=== PATIENT | female | born 1975 | race Two or more races ===

== ENCOUNTER 2016-07-27 16:57 | Emergency (ER) | payer OTHER ==
[~2016-07-27] VITALS: Ht 157.5 cm; Wt 50.0 kg
[~2016-07-27 16:57] MED LIST: AZIT250T94 PO; FAMO-18 PO; FLUT9.9S NASAL; HYDR-3498 PO; IBUP-1542 PO; METR375C4 PO; PROM6.25 PO; PSEU30TA38 PO; [UNRECOGNIZED DRUG - REMARK]
[2016-07-27 17:24] VITALS: Ht 157.5 cm; Wt 50.0 kg
[2016-07-27] MEDS ORDERED: ACETAMINOPHEN 325 MG TAB PO ONE (19:00)
[2016-07-27] MEDS ORDERED: SOD CHLORIDE 0.9% 500 ML IV STA (19:08)
--- NOTE | 2016-07-27 19:40 | RADRPT ---
PROCEDURE: Right upper quadrant abdominal ultrasound. CLINICAL INDICATION: Abdominal pain TECHNIQUE: Chavarria scale and color doppler ultrasound images of the right upper quadrant. COMPARISON: CT abdomen pelvis 12/23/2015 FINDINGS: Pancreas: Poorly visualized due to overlying bowel gas. Liver: Morphology: The right lobe of the liver is elongated measuring up to 17.7 cm which may reflect Ssii del's lobe configuration. Echogenicity: Increased echogenicity of the liver parenchyma suggestive of hepatic steatosis. Focal lesions: None. Main portal vein: Patent with hepatopetal flow. Biliary System: Normal appearing gallbladder wall. No gallstones seen. No intrahepatic biliary dilatation. Common bile duct measures 2.7 mm in maximal dimension. Kidneys: Right 10.3 cm in length. Right renal cortical thickness is preserved. Normal echogenicity. No hydronephrosis. No renal calculi. No focal lesions. No free fluid identified. IMPRESSION: Normal gallbladder without gallstones. Increased echogenicity of the liver parenchyma suggestive of hepatic steatosis. RPTAT: AADD .Jose G Wiggins MD, MD Date Time Electronically viewed and signed by .Jose G Wiggins MD, on 07/27/2016 19:39 .B/
[2016-07-27 19:41] LABS: ADD UMIC NO; URINE BILIRUBIN (Dip) NEGATIVE (NEGATIVE); URINE BLOOD (Dip) NEGATIVE (NEGATIVE); URINE COLOR LT. YELLOW (YELLOW); URINE GLUCOSE (Dip) NEGATIVE (NEGATIVE); URINE KETONES (Dip) NEGATIVE (NEGATIVE); URINE LEUKOCYTE ESTERASE (Dip) NEGATIVE (NEGATIVE); URINE NITRITE (Dip) NEGATIVE (NEGATIVE); URINE TOTAL PROTEIN (Dip) NEGATIVE (NEGATIVE); URINE UROBILINOGEN (Dip) 0.2 E.U./dL (0.1-1.0)
--- NOTE | 2016-07-27 20:05 | RADRPT ---
PROCEDURE: CT Brain without contrast. CLINICAL INDICATION: Dizziness and headache TECHNIQUE: A CT of the brain was performed on a [employer] 64-slice CT scanner utilizing axial imaging from the skull base through the vertex without IV contrast. Multiplanar reformatted images were made. Images were reviewed on a PACS workstation. The CTDIvol is 39.59 mGy and the DLP is 634 .23 mGycm. One of the following 3 dose reduction techniques were used: Automated exposure control; adjustment of the mA and/or kV according to patient size; or use of iterative reconstruction technique. COMPARISON: 05/10/2013 CT brain FINDINGS: There is no intracranial hemorrhage, mass effect, or midline shift. No extra-axial fluid collection is seen. The ventricles and sulci are normal in size and configuration. The density of the brain is normal, and the gonzalez white matter differentiation appears well-preserved. The visualized scalp and calvarium are normal. The bilateral orbits are normal. The bilateral para nasal sinuses, mastoid air cells, and middle ear cavities are clear. IMPRESSION: 1. No evidence of acute intracranial hemorrhage, infarcts, or acute intracranial pathology. 2. Normal noncontrast head CT. RPTAT: HD .Ruthie Sanches MD, Date Time Electronically viewed and signed by .Ruthie Sanches MD, on 07/27/2016 20:05 .C/
[2016-07-27 20:28] LABS: ADD SCAN DIFF NO
[2016-07-27 20:36] LABS: BASOPHILS % 0.4 % (0.0-2.0); EOSINOPHILS # 0.2 10^3/ul (0.0-0.5); EOSINOPHILS % 2.9 % (0.0-7.0); HEMATOCRIT 37.5 % (37.0-47.0); HEMOGLOBIN 11.8 g/dl (12.0-16.0); LYMPHOCYTES # 3.3 10^3/ul (0.8-2.9); LYMPHOCYTES % 48.1 % (15.0-51.0); MEAN CORPUSCULAR HEMOGLOBIN 22.5 pg (29.0-33.0); MEAN CORPUSCULAR HGB CONC 31.5 g/dl (32.0-37.0); MEAN CORPUSCULAR VOLUME 71.6 fl (82.0-101.0); MEAN PLATELET VOLUME 10.9 fl (7.4-10.4); MONOCYTE # 0.4 10^3/ul (0.3-0.9); MONOCYTES % 5.7 % (0.0-11.0); NEUTROPHIL # 2.9 10^3/ul (1.6-7.5); NEUTROPHILS % 42.5 % (39.0-77.0); PLATELET COUNT 250 10^3/UL (140-415); RED BLOOD COUNT 5.24 10^6/ul (4.20-5.40); RED CELL DISTRIBUTION WIDTH 13.2 % (11.5-14.5); WHITE BLOOD COUNT 6.9 10^3/ul (4.8-10.8)
[2016-07-27 20:39] LABS: ALBUMIN 4.4 g/dl (3.3-4.9)
[2016-07-27 20:40] LABS: POTASSIUM 3.9 mmol/L (3.5-5.1)
[2016-07-27 20:42] LABS: ALBUMIN/GLOBULIN RATIO 1.29; CREATININE 0.59 mg/dl (0.44-1.00); TOTAL PROTEIN 7.8 g/dl (6.1-8.1)
[2016-07-27 20:43] LABS: CALCIUM 9.6 mg/dl (8.4-10.2)
[2016-07-27] MEDS ORDERED: FAMO20TA18 PO (21:30)
[2016-07-27] MEDS ORDERED: HYDR-906 PO (21:30)
[2016-07-27] MEDS ORDERED: ONDA4TAB8 PO (21:30)
[2016-07-27] MEDS ORDERED: IBUP-1542 PO (21:30)
[2016-07-27 22:10] VITALS: BP 139/79; PULSE 87; RESP 18; TEMP 97.9
--- NOTE | 2016-07-28 03:45 | ERD ---
ER Documentation Chief Complaint Date/Time DATE: 07/28/16 TIME: 03:32 Chief Complaint CAME TO ED C/O ELEVATED BLOOD GLUCOSE AND INSOMNIA HPI Patient is a 41-year-old female complaining of generalized weakness and intermittent frontal headache for 2 weeks. Patient also complained of chronic right upper quadrant pain for several months and urinary frequency. Patient has a medical history of diabetes and GERD. Patient denies any recent history of fever, nausea, vomiting, dysuria, cough, dysphagia, paresthesia, paresis, diarrhea or constipation. Denies any history of surgery. ROS All systems reviewed and are negative except as per history of present illness. Medications Home Meds Active Scripts Ibuprofen* (Motrin*) 600 Mg Tab, 600 MG PO Q6H Y for PAIN AND OR ELEVATED TEMP, #30 TAB Prov:FAISAL SCHREIBER 07/27/16 Hydrocodone/Acetaminophen ([place] 5-325 Tablet) 1 Each Tablet, 1 EACH PO Q4 for PAIN, #10 TAB Prov:FAIASL SCHREIBER 07/27/16 Famotidine* (Famotidine*) 20 Mg Tablet, 20 MG PO DAILY, #30 TAB Prov:FAISAL SCHREIBER 07/27/16 Ondansetron Hcl* (Zofran*) 4 Mg Tablet, 4 MG PO Q6H for NAUSEA AND/OR VOMITING, #30 TAB Prov:FAISAL SCHREIBER 07/27/16 Ibuprofen* (Motrin*) 600 Mg Tab, 600 MG PO Q6, #30 TAB Prov:ROLANDO PHELAN PA-C 05/23/16 Pseudoephedrine Hcl* (Pseudoephedrine Hcl*) 30 Mg Tablet, 30 MG PO Q6 Y for CONGESTION, #30 TAB Prov:AFSHIN ARREAGA PA-C 12/23/15 Fluticasone Propionate (Flonase Allergy Relief) 9.9 Ml [place].susp, 1 SPRAY NASAL DAILY, #1 BOTTLE TO EACH NOSTRIL Prov:AFSHIN ARREAGA PA-C 12/23/15 Hydrocodone Bit-Acetaminophen* ([place]*) 5-325 Mg Tab, 1 TAB PO Q4H Y for PAIN for 5 Days, TAB Prov:ADDY RODRIGUEZ 08/16/15 Famotidine* (Pepcid*) 20 Mg Tablet, 20 MG PO BID for 15 Days, TAB Prov:ADDY RODRIGUEZ 08/16/15 Promethazine w/Codeine* (Phenergan w/Codeine* Syrup) 5 Ml Syrup, 5 ML PO Q4H Y for COUGH, #4 OZ Prov:ROLANDO PHELAN PA-C 06/27/15 Azithromycin* (Zithromax*) 250 Mg Tablet, 250 MG PO .ZPACK DIRECTED, #6 TAB TAKE 500 MG (2 TABS) THE FIRST DAY THEN 250 MG (1 TAB) DAYS 2-5 Prov:ROLANDO PHELAN PA-C 06/27/15 Reported Medications [stomach medications] No Conflict Check 01/11/15 Metronidazole* (Metronidazole*) 375 Mg Capsule, 375 MG PO BID, CAP 01/11/15 Allergies Allergies: Coded Allergies: No Known Allergy (Unverified , 01/31/14) PMhx/Soc History of Surgery: No Anesthesia Reaction: No Hx Neurological Disorder: No Hx Respiratory Disorders: No Hx Cardiac Disorders: No Hx Psychiatric Problems: No Hx Miscellaneous Medical Probl: Yes (GERD; dm) Hx Alcohol Use: No Hx Substance Use: No Hx Tobacco Use: No Smoking Status: Never smoker Physical Exam Vitals Vital Signs Date Time Temp Pulse Resp B/P Pulse Ox O2 Delivery O2 Flow Rate FiO2 07/27/16 22:10 97.9 87 18 139/79 100 Room Air 07/27/16 17:24 98.7 102 16 126/79 99 Physical Exam Physical Exam CONST: Well-developed, well-nourished, in no acute distress. Nontoxic in appearance. HEENT: Atraumatic. Normal Conjunctiva. EOM intact. TM intact. External ear is normal. Clear oropharnyx without erythema. No Uvular deviation. Moist mucous membranes. Supple neck. No meningismus. No submandibular induration. RESP: Clear to auscultation bilaterally. No wheezing. CARDIO: Regular rate and rhythm, no murmurs. ABD: Soft, non distended. Normal bowel sounds. positive for McBurney's point and epigastric tenderness. No guarding or rigidity. No peritoneal signs. SKIN: No petechiae or rashes. BACK: No midline or flank tenderness. EXT: No cyanosis or edema. Distal pulses equal and bilateral. NEURO: Awake and alert, appropriate for age Result Diagram: 07/27/16193907/27/161939 Results 24 hrs Laboratory Tests Test 07/27/16 17:33 07/27/16 19:25 07/27/16 19:40 07/27/16 19:52 Bedside Glucose 202mg/dL 198mg/dL Urine Bilirubin NEGATIVE Urine Clarity CLEAR Urine Color LT. YELLOW Urine Glucose NEGATIVE% Urine Hemoglobin NEGATIVE Urine Ketones NEGATIVE Urine Leukocyte Esterase NEGATIVE Urine Nitrite NEGATIVE Urine Test NEGATIVE Urine Specific [place] >=1.030 Urine Total Protein NEGATIVE Urine Urobilinogen 0.2 E.U./dL Urine pH 5.5 Alanine Aminotransferase (ALT/SGPT) 47IU/L Albumin 4.4g/dl Albumin/Globulin Ratio 1.29 Alkaline Phosphatase 117IU/L Anion Gap 18 Aspartate Amino Transf (AST/SGOT) 44IU/L Basophils # 0.010^3/ul Basophils % 0.4% Blood Urea Nitrogen 13mg/dl Calcium Level 9.6mg/dl Carbon Dioxide Level 26mmol/L Chloride Level 100mmol/L Creatinine 0.59mg/dl Direct Bilirubin 0.00mg/dl Eosinophils # 0.210^3/ul Eosinophils % 2.9% Globulin 3.40g/dl Glucose Level 211mg/dl Hematocrit 37.5% Hemoglobin 11.8g/dl Indirect Bilirubin 0.0mg/dl Lipase 169U/L Lymphocytes # 3.310^3/ul Lymphocytes % 48.1% Mean Corpuscular Hemoglobin 22.5pg Mean Corpuscular Hemoglobin Concent 31.5g/dl Mean Corpuscular Volume 71.6fl Mean Platelet Volume 10.9fl Monocytes # 0.410^3/ul Monocytes % 5.7% Neutrophils # 2.910^3/ul Neutrophils % 42.5% Nucleated Red Blood Cells # 0.010^3/ul Nucleated Red Blood Cells % 0.0/100WBC Platelet Count 21819^3/UL Potassium Level 3.9mmol/L Red Blood Count 5.2410^6/ul Red Cell Distribution Width 13.2% Sodium Level 140mmol/L Total Bilirubin 0.0mg/dl Total Protein 7.8g/dl White Blood Count 6.910^3/ul Current Medications Medications (Trade) Dose Ordered Sig/Konstantin Route PRN Reason Start Time Stop Time Status Last Admin Dose Admin Acetaminophen 650 mg 650 mg ONCE ONCE PO 07/27/16 19:00 07/27/16 19:03 DC 07/27/16 20:17 Sodium Chloride (NS) 500 ml @ 500 mls/hr Q1H STAT IV 07/27/16 19:08 07/27/16 20:07 DC 07/27/16 20:17 PROCEDURE: Right upper quadrant abdominal ultrasound. CLINICAL INDICATION: Abdominal pain TECHNIQUE: Chavarria scale and color doppler ultrasound images of the right upper quadrant. COMPARISON: CT abdomen pelvis 12/23/2015 FINDINGS: Pancreas: Poorly visualized due to overlying bowel gas. Liver: Morphology: The right lobe of the liver is elongated measuring up to 17.7 cm which may reflect Cristofer's lobe configuration. Echogenicity: Increased echogenicity of the liver parenchyma suggestive of hepatic steatosis. Focal lesions: None. Main portal vein: Patent with hepatopetal flow. Biliary System: Normal appearing gallbladder wall. No gallstones seen. No intrahepatic biliary dilatation. Common bile duct measures 2.7 mm in maximal dimension. Kidneys: Right 10.3 cm in length. Right renal cortical thickness is preserved. Normal echogenicity. No hydronephrosis. No renal calculi. No focal lesions. No free fluid identified. IMPRESSION: Normal gallbladder without gallstones. Increased echogenicity of the liver parenchyma suggestive of hepatic steatosis. PROCEDURE: CT Brain without contrast. CLINICAL INDICATION: Dizziness and headache TECHNIQUE: A CT of the brain was performed on a [employer] 64-slice CT scanner utilizing axial imaging from the skull base through the vertex without IV contrast. Multiplanar reformatted images were made. Images were reviewed on a PACS workstation. The CTDIvol is 39.59 mGy and the DLP is 634.23 mGycm. One of the following 3 dose reduction techniques were used: Automated exposure control; adjustment of the mA and/or kV according to patient size; or use of iterative reconstruction technique. COMPARISON: 05/10/2013 CT brain FINDINGS: There is no intracranial hemorrhage, mass effect, or midline shift. No extra- axial fluid collection is seen. The ventricles and sulci are normal in size and configuration. The density of the brain is normal, and the chavarria white matter differentiation appears well-preserved. The visualized scalp and calvarium are normal. The bilateral orbits are normal. The bilateral paranasal sinuses, mastoid air cells, and middle ear cavities are clear. IMPRESSION: 1. No evidence of acute intracranial hemorrhage, infarcts, or acute intracranial pathology. 2. Normal noncontrast head CT. Procedures/MDM EMERGENCY DEPARTMENT COURSE/MEDICAL DECISION MAKING This is a 41-year-old female who comes to the emergency room secondary to complaints of intermittent headache and generalized weakness for 2 weeks, urinary frequency and chronic abdominal pain. The patient was given NS bolus for tachycardia and Tylenol for pain. On re- evaluation, the patient's symptoms improved. Lab results reviewed and showed no significant acute abnormalities. Patient is negative for leukocytosis or neutrophilia. POC blood sugar is 202. CT of the head and ultrasound of the abdomen were done and interpreted by a radiologist. CT of the head is negative for any intracranial hemorrhage or infarcts. Ultrasound of the abdomen shows normal gallbladder without stones and increased echogenicity of liver parenchyma suggestive of hepatic steatosis. My primary diagnosis is abdominal pain. Secondary diagnosis are headache and hyperglycemia Differential diagnoses considered, included but not limited to acute appendicitis, diverticulitis, pancreatitis, cholecystitis, gastritis, pyelonephritis, UTI, constipation, inflammatory bowel disease, ectopic , ovarian torsion.. Pt is hemodynamically stable upon reassessment. The patient was discharged for outpatient management with a prescription for Pepcid, [place], ibuprofen and Zofran. The patient was advised to followup with their PMD in 1-2 days and to return to the Emergency Department if there are any new or worsening symptoms. The patient understood and agreed with the diagnosis, treatment and plan. Patient is stable for discharge at this time. Departure Diagnosis: Primary Impression: Abdominal pain Abdominal location: right upper quadrant Qualified Code: R10.11 - Right upper quadrant abdominal pain Additional Impressions: Headache Headache type: unspecified Headache chronicity pattern: episodic headache Intractability: intractable Qualified Code: R51 - Intractable episodic headache, unspecified headache type Hyperglycemia Condition: Stable Patient Instructions: Abdominal Pain, Headache, Unspecified Referrals: CINDA MENESES (PCP) Additional Instructions: Follow-up with your primary care physician in 1-2 days. Return to the emergency department immediately should you have any new or worsening symptoms, uncontrolled fevers, or other unexplained symptoms. Take all medications as directed. FAISAL SCHREIBER Jul 28, 2016 03:44
== END 2016-07-27 23:10 | disposition home or self-care (01) ==
LOC: FTE 16:57
DX: R10.11 Right upper quadrant pain (principal); R51 Headache; E11.65 Type 2 diabetes mellitus with hyperglycemia
CPT/HCPCS: 36415; 70450; 76705; 80053; 81003; 82962; 83690; 84703; 85025; J7040; Z7502; Z7610

== ENCOUNTER 2016-11-18 12:03 | Emergency (ER) | payer OTHER ==
[~2016-11-18] VITALS: Ht 152.4 cm; Wt 56.0 kg
[~2016-11-18 12:03] MED LIST changes: +FAMO20TA18 PO; +HYDR-906 PO; +ONDA4TAB8 PO
[2016-11-18 12:07] VITALS: Ht 152.4 cm; Wt 56.0 kg
[2016-11-18] MEDS ORDERED: ACETAMINOPHEN 500 MG TAB PO STA (13:07)
[2016-11-18] MEDS ORDERED: HYDR-906 PO (13:23)
[2016-11-18] MEDS ORDERED: IBUP-1542 PO (13:23)
[2016-11-18] MEDS ORDERED: AMOX1TAB10 PO (13:24)
--- NOTE | 2016-11-18 13:34 | ERD ---
ER Documentation Chief Complaint Date/Time DATE: 11/18/16 TIME: 13:31 Chief Complaint TOOTH ACHE HPI This 41-year-old female who presents the emergency department today complaining of dental pain for the past month. I spoke to the son on the phone as she walked here by herself and does not speak much Vincentian. Denies any fevers or chills ROS All systems reviewed and are negative except as per history of present illness. Medications Home Meds Active Scripts Amoxicillin/Potassium Clav (Amox-Clav 875-125 mg Tablet) 875-125 mg Tab, 1 TAB PO BID for 7 Days, #14 TAB Prov:ALVARO STERLING PA-C 11/18/16 Ibuprofen* (Motrin*) 600 Mg Tab, 600 MG PO Q6, #30 TAB Prov:ALVARO STERLING PA-C 11/18/16 Hydrocodone/Acetaminophen ([place] 5-325 Tablet) 1 Each Tablet, 1 TAB PO Q6H Y for PAIN, #10 TAB Prov:ALVARO STERLING PA-C 11/18/16 Ibuprofen* (Motrin*) 600 Mg Tab, 600 MG PO Q6H Y for PAIN AND OR ELEVATED TEMP, #30 TAB Prov:FAISAL SCHREIBER 07/27/16 Hydrocodone/Acetaminophen ([place] 5-325 Tablet) 1 Each Tablet, 1 EACH PO Q4 for PAIN, #10 TAB Prov:FAISAL SCHREIBER 07/27/16 Famotidine* (Famotidine*) 20 Mg Tablet, 20 MG PO DAILY, #30 TAB Prov:FAISAL SCHREIBER 07/27/16 Ondansetron Hcl* (Zofran*) 4 Mg Tablet, 4 MG PO Q6H for NAUSEA AND/OR VOMITING, #30 TAB Prov:FAISAL SCHREIBER 07/27/16 Ibuprofen* (Motrin*) 600 Mg Tab, 600 MG PO Q6, #30 TAB Prov:ROLANDO PHELAN PA-C 05/23/16 Pseudoephedrine Hcl* (Pseudoephedrine Hcl*) 30 Mg Tablet, 30 MG PO Q6 Y for CONGESTION, #30 TAB Prov:AFSHIN ARREAGA PA-C 12/23/15 Fluticasone Propionate (Flonase Allergy Relief) 9.9 Ml [place].susp, 1 SPRAY NASAL DAILY, #1 BOTTLE TO EACH NOSTRIL Prov:AFSHIN ARREAGA PA-C 12/23/15 Hydrocodone Bit-Acetaminophen* ([place]*) 5-325 Mg Tab, 1 TAB PO Q4H Y for PAIN for 5 Days, TAB Prov:ADDY RODRIGUEZ 08/16/15 Famotidine* (Pepcid*) 20 Mg Tablet, 20 MG PO BID for 15 Days, TAB Prov:ADDY RORDIGUEZ 08/16/15 Promethazine w/Codeine* (Phenergan w/Codeine* Syrup) 5 Ml Syrup, 5 ML PO Q4H Y for COUGH, #4 OZ Prov:ROLANDO PHELAN PA-C 06/27/15 Azithromycin* (Zithromax*) 250 Mg Tablet, 250 MG PO .ZPACK DIRECTED, #6 TAB TAKE 500 MG (2 TABS) THE FIRST DAY THEN 250 MG (1 TAB) DAYS 2-5 Prov:ROLANDO PHELAN PA-C 06/27/15 Reported Medications [stomach medications] No Conflict Check 01/11/15 Metronidazole* (Metronidazole*) 375 Mg Capsule, 375 MG PO BID, CAP 01/11/15 Allergies Allergies: Coded Allergies: No Known Allergy (Unverified , 11/18/16) PMhx/Soc Medical and Surgical Hx: pt denies Surgical Hx History of Surgery: No Anesthesia Reaction: No Hx Neurological Disorder: No Hx Respiratory Disorders: No Hx Cardiac Disorders: No Hx Psychiatric Problems: No Hx Miscellaneous Medical Probl: Yes (GERD; dm) Hx Alcohol Use: No Hx Substance Use: No Hx Tobacco Use: No Smoking Status: Never smoker Physical Exam Vitals Vital Signs Date Time Temp Pulse Resp B/P Pulse Ox O2 Delivery O2 Flow Rate FiO2 11/18/16 12:07 97.8 83 20 142/77 99 Physical Exam Const: No acute distress Head: Atraumatic Eyes: Normal Conjunctiva ENT: Ears TMs normal. Nose no drainage. Throat erythema no exudate no vesicles. Evidence of tooth fracture lower left molar. Neck: Full range of motion..~ No meningismus. Resp: Clear to auscultation bilaterally Skin: No petechiae or rashes Neur: Awake and alert Psych: Normal Mood and Affect Results 24 hrs Current Medications Medications (Trade) Dose Ordered Sig/Konstantin Route PRN Reason Start Time Stop Time Status Last Admin Dose Admin Acetaminophen (Tylenol Tab) 500 mg ONCE STAT PO 11/18/16 13:07 11/18/16 13:09 DC 11/18/16 13:23 Procedures/MDM This 41-year-old female presents the emergency department today complaining of dental pain for the past month. I did speak to the son on the phone as the patient does not speak much Vincentian she was here by herself. According to the son she has had this dental pain for the past month. She does not currently have a dentist. He did indicate that she walked here from home. Patient symptoms at this time is consistent with dental fracture. I do have low suspicion for dental abscess however given that patient does not currently have a dentist and has had this pain for a month I will give the patient a prescription for Augmentin that would cover her for any dental abscess although I do have low suspicion for that. She is afebrile and otherwise well-appearing. Patient was given Tylenol here in the emergency department as she is walking by herself and I did not want to give her a narcotic. She was given a short course of [place] for home as well as the Augmentin. At this time the patient is stable for discharge and outpatient management. Patient should follow up with their PCP in the next 1-2 days. They may return to the emergency department sooner for any persistent or worsening of symptoms. Patient understood and agreed with the plan. Departure Diagnosis: Primary Impression: Pain, dental Condition: Fair Patient Instructions: Dental Pain Referrals: [facility] ([facility] walk in clinic) Additional Instructions: Call your primary care doctor TOMORROW for an appointment during the next 1-2 days.See the doctor sooner or return here if your condition worsens before your appointment time. Make an appointment at the dentist Take [place] for severe pain otherwise take Naprosyn or Tylenol or Motrin Take antibiotics as prescribed ALVARO STERLING PA-C Nov 18, 2016 13:33
== END 2016-11-18 14:05 | disposition home or self-care (01) ==
LOC: FTE 12:03
DX: K08.89 Other specified disorders of teeth and supporting structures (principal); E11.9 Type 2 diabetes mellitus without complications
CPT/HCPCS: Z7502; Z7610; 99284

== ENCOUNTER 2016-12-10 16:10 | Emergency (ER) | payer OTHER ==
[~2016-12-10] VITALS: Wt 60.0 kg
[~2016-12-10 16:10] MED LIST changes: +AMOX1TAB10 PO; -FAMO-18 PO; +FAMO-96 PO
[2016-12-10] MEDS ORDERED: BENZ11.92 MM (16:38)
[2016-12-10] MEDS ORDERED: [UNRECOGNIZED DRUG - CODE] PO (16:40)
[2016-12-10] MEDS ORDERED: ASCO500C7 PO (16:40)
[2016-12-10] MEDS ORDERED: CYAN100T PO (16:40)
--- NOTE | 2016-12-10 16:45 | ERD ---
ER Documentation Chief Complaint Date/Time DATE: 12/10/16 TIME: 16:43 Chief Complaint MOUTH SORE FO THE PAST 7 DAYS. NO FEVERS. NO SORE THROAT HPI 41-year-old female presents with mouth sores on her inner lower lip for the past week. She describes as localized pain. She has not had any fevers or chills, rhinorrhea cough. Denies rashes or neck stiffness. Patient is asking for prescription for vitamins. ROS All systems reviewed and are negative except as per history of present illness. Medications Home Meds Active Scripts Cyanocobalamin* (Vitamin B-12*) 100 Mcg Tablet, 100 MCG PO DAILY, #30 TAB Prov:ROLANDO PHELAN PA-C 12/10/16 Lysine (Lysine) 500 Mg Tablet, 500 MG PO DAILY, #30 TAB Prov:ROLANDO PHELAN PA-C 12/10/16 Ascorbic Acid* (Vitamin C*) 500 Mg Capsule.sa, 500 MG PO DAILY, #30 CAP Prov:ROLANDO PHELAN PA-C 12/10/16 Benzocaine ([place]) 11.9 Gm Paste..g., 1 APPLIC MM BID, #1 EA Prov:ROLANDO PHELAN PA-C 12/10/16 Amoxicillin/Potassium Clav (Amox-Clav 875-125 mg Tablet) 875-125 mg Tab, 1 TAB PO BID for 7 Days, #14 TAB Prov:ALVARO STERLING PA-C 11/18/16 Ibuprofen* (Motrin*) 600 Mg Tab, 600 MG PO Q6, #30 TAB Prov:ALVARO STERLING PA-C 11/18/16 Hydrocodone/Acetaminophen ([place] 5-325 Tablet) 1 Each Tablet, 1 TAB PO Q6H Y for PAIN, #10 TAB Prov:ALVARO STERLING PA-C 11/18/16 Ibuprofen* (Motrin*) 600 Mg Tab, 600 MG PO Q6H Y for PAIN AND OR ELEVATED TEMP, #30 TAB Prov:FAISAL SCHREIBER 07/27/16 Hydrocodone/Acetaminophen ([place] 5-325 Tablet) 1 Each Tablet, 1 EACH PO Q4 for PAIN, #10 TAB Prov:FAISAL SCHREIBER 07/27/16 Famotidine* (Famotidine*) 20 Mg Tablet, 20 MG PO DAILY, #30 TAB Prov:FAISAL SCHREIBER 07/27/16 Ondansetron Hcl* (Zofran*) 4 Mg Tablet, 4 MG PO Q6H for NAUSEA AND/OR VOMITING, #30 TAB Prov:FAISAL SCHREIBER 07/27/16 Ibuprofen* (Motrin*) 600 Mg Tab, 600 MG PO Q6, #30 TAB Prov:ROLANDO PHELAN PA-C 05/23/16 Pseudoephedrine Hcl* (Pseudoephedrine Hcl*) 30 Mg Tablet, 30 MG PO Q6 Y for CONGESTION, #30 TAB Prov:AFSHIN ARREAGA PA-C 12/23/15 Fluticasone Propionate (Flonase Allergy Relief) 9.9 Ml [place].susp, 1 SPRAY NASAL DAILY, #1 BOTTLE TO EACH NOSTRIL Prov:AFSHIN ARREAGA PA-C 12/23/15 Hydrocodone Bit-Acetaminophen* ([place]*) 5-325 Mg Tab, 1 TAB PO Q4H Y for PAIN for 5 Days, TAB Prov:ADDY RODRIGUEZ 08/16/15 Famotidine* (Pepcid*) 20 Mg Tablet, 20 MG PO BID for 15 Days, TAB Prov:ADDY RODRIGUEZ 08/16/15 Promethazine w/Codeine* (Phenergan w/Codeine* Syrup) 5 Ml Syrup, 5 ML PO Q4H Y for COUGH, #4 OZ Prov:ROLANDO PHELAN PA-C 06/27/15 Azithromycin* (Zithromax*) 250 Mg Tablet, 250 MG PO .ZPACK DIRECTED, #6 TAB TAKE 500 MG (2 TABS) THE FIRST DAY THEN 250 MG (1 TAB) DAYS 2-5 Prov:ROLANDO PHELAN PA-C 06/27/15 Reported Medications [stomach medications] No Conflict Check 01/11/15 Metronidazole* (Metronidazole*) 375 Mg Capsule, 375 MG PO BID, CAP 01/11/15 Allergies Allergies: Coded Allergies: No Known Allergy (Unverified , 12/10/16) PMhx/Soc History of Surgery: No Anesthesia Reaction: No Hx Neurological Disorder: No Hx Respiratory Disorders: No Hx Cardiac Disorders: No Hx Psychiatric Problems: No Hx Miscellaneous Medical Probl: No Hx Alcohol Use: No Hx Substance Use: No Hx Tobacco Use: No Smoking Status: Never smoker Physical Exam Vitals Vital Signs Date Time Temp Pulse Resp B/P Pulse Ox O2 Delivery O2 Flow Rate FiO2 12/10/16 16:14 98.8 89 20 150/87 100 Physical Exam General: Well-developed, well-nourished. The patient appears in no acute distress. HEENT: Head is normocephalic, atraumatic. No scleral icterus. Patient has 2 ulcers with an erythematous base, 1 approximately 0.5 cm, one naproxen 0.25 cm in inner lower lip. Throat is clear, oropharynx is clear. Neck: Supple. Nontender. Lungs: Clear to auscultation. Normal air movement. Heart: Regular rate and rhythm. S1 and S2 are normal. No murmurs, gallops, or rubs. Abdomen: Nondistended. Extremities: No clubbing or cyanosis. Moving extremities x 4. No weakness. Neurologic: Alert and oriented 3. No focal deficits. Normal speech and gait. Skin: Normal turgor. No rash or lesions. Procedures/MDM 41-year-old female presents with a mouth ulcer, likely from a viral syndrome, versus stress or fatigue. There are no signs of stomatitis, lichen planus, fungal infection, cellulitis, strep pharyngitis. Departure Diagnosis: Primary Impression: Mouth sore Condition: Good Patient Instructions: Aphthous Ulcer Additional Instructions: Call your primary care doctor TOMORROW for an appointment during the next 1-2 days.See the doctor sooner or return here if your condition worsens before your appointment time. ROLANDO PHELAN PA-C Dec 10, 2016 16:44
== END 2016-12-10 16:58 | disposition home or self-care (01) ==
LOC: FTE 16:10
DX: K13.79 Other lesions of oral mucosa (principal)
CPT/HCPCS: 99283

== ENCOUNTER 2017-01-25 11:38 | Emergency (ER) | payer OTHER ==
[~2017-01-25] VITALS: Ht 157.5 cm; Wt 97.5 kg
[~2017-01-25 11:38] MED LIST changes: +ASCO500C7 PO; +BENZ11.92 MM; +CYAN100T PO; +[UNRECOGNIZED DRUG - CODE] PO
[2017-01-25 11:46] VITALS: Ht 157.5 cm; Wt 97.5 kg
--- NOTE | 2017-01-25 13:26 | RADRPT ---
PROCEDURE: XR Chest 1 View. CLINICAL INDICATION: Chest pain TECHNIQUE: PA view of the chest was obtained. COMPARISON: June 27, 2015 FINDINGS: The cardiomediastinal silhouette is within normal limits. Chronically elevated right hemidiaphragm i s observed. No consolidations are identified. No pneumothorax is seen. Subsegmental atelectasis is identified at the right lung base. Calcified granuloma is seen in the right lower lobe. Osseous str uctures are intact. IMPRESSION: Elevated right hemidiaphragm with associated basilar atelectasis. Calcified granuloma in the right lower lobe. RPTAT: AA .Abdiel Siddiqui MD, Date Time Electronically viewed and signed by .Abdiel Siddiqui MD, on 01/25/2017 13:26 .P/
[2017-01-25 13:33] LABS: BASOPHILS % 0.3 % (0.0-2.0); EOSINOPHILS # 0.1 10^3/ul (0.0-0.5); EOSINOPHILS % 1.8 % (0.0-7.0); HEMATOCRIT 34.7 % (37.0-47.0); HEMOGLOBIN 10.8 g/dl (12.0-16.0); LYMPHOCYTES # 3.3 10^3/ul (0.8-2.9); LYMPHOCYTES % 44.5 % (15.0-51.0); MEAN CORPUSCULAR HEMOGLOBIN 22.1 pg (29.0-33.0); MEAN CORPUSCULAR HGB CONC 31.1 g/dl (32.0-37.0); MEAN CORPUSCULAR VOLUME 71.1 fl (82.0-101.0); MEAN PLATELET VOLUME 10.8 fl (7.4-10.4); MONOCYTE # 0.3 10^3/ul (0.3-0.9); MONOCYTES % 4.5 % (0.0-11.0); NEUTROPHILS % 48.5 % (39.0-77.0); PLATELET COUNT 226 10^3/UL (140-415); RED BLOOD COUNT 4.88 10^6/ul (4.20-5.40); RED CELL DISTRIBUTION WIDTH 14.4 % (11.5-14.5); WHITE BLOOD COUNT 7.3 10^3/ul (4.8-10.8)
[2017-01-25 13:54] LABS: ALANINE AMINOTRANSFERASE 48 IU/L (13-69); ALBUMIN 4.5 g/dl (3.3-4.9); ALBUMIN/GLOBULIN RATIO 1.21; ALKALINE PHOSPHATASE 98 IU/L (42-121); ANION GAP 15 (8-16); ASPARTATE AMINO TRANSFERASE 38 IU/L (15-46); BILIRUBIN,INDIRECT 0.3 mg/dl (0-1.1); BILIRUBIN,TOTAL 0.3 mg/dl (0.2-1.3); BLOOD UREA NITROGEN 15 mg/dl (7-20); CALCIUM 9.5 mg/dl (8.4-10.2); CARBON DIOXIDE 24 mmol/L (21-31); CHLORIDE 105 mmol/L (97-110); CREATININE 0.65 mg/dl (0.44-1.00); GLUCOSE 136 mg/dl (70-220); POTASSIUM 3.4 mmol/L (3.5-5.1); SODIUM 141 mmol/L (135-144); TOTAL PROTEIN 8.2 g/dl (6.1-8.1)
[2017-01-25 14:10] LABS: ADD UMIC NO; UR ASCORBIC ACID 20 mg/dL (NEGATIVE); UR BILIRUBIN (Dip) NEGATIVE (NEGATIVE); UR BLOOD (Dip) NEGATIVE (NEGATIVE); UR CLARITY SLIGHTLY CLOUDY (CLEAR); UR COLOR YELLOW (YELLOW); UR GLUCOSE (Dip) 3+ mg/dL (NEGATIVE); UR KETONES (Dip) NEGATIVE (NEGATIVE); UR LEUKOCYTE ESTERASE (Dip) NEGATIVE Leu/ul (NEGATIVE); UR MUCUS FEW /HPF (NONE SEEN); UR NITRITE (Dip) NEGATIVE (NEGATIVE); UR RBC 3 /HPF (0-5); UR SPECIFIC GRAVITY (Dip) 1.026 (1.003-1.030); UR SQUAMOUS EPITHELIAL CELL MODERATE /HPF (FEW); UR TOTAL PROTEIN (Dip) NEGATIVE (NEGATIVE); UR UROBILINOGEN (Dip) NEGATIVE (NEGATIVE)
[2017-01-25 14:15] LABS: TROPONIN-I < 0.012 ng/ml (0.00-0.12)
--- NOTE | 2017-01-25 15:08 | ERA ---
ER Documentation Chief Complaint Date/Time DATE: 01/25/17 TIME: 15:02 Chief Complaint Complains of abdominal pain x 2 weeks became worst last night HPI 41-year-old female with a chief complaint of gastritis. Patient has [place] speaking. [place] when the gastritis started. States that the pain comes every night and has had difficulty sleeping. [employer] [id number] was used. Denies shortness of breath, previous MT/BTE, fever, chills, lower abdominal pain. Worse with laying down. Patient takes pantoprazole 40 mg p.o. daily with minimal relief. Patient has seen a bicycle rental clerk but has not followed up. Patient has no other complaints and describes no other associated manifestations. Nursing notes have been reviewed and are consistent with history given. ROS All systems reviewed and are negative except as per history of present illness. Medications Home Meds Active Scripts Cyanocobalamin* (Vitamin B-12*) 100 Mcg Tablet, 100 MCG PO DAILY, #30 TAB Prov:ROLANDO PHELAN PA-C 12/10/16 Lysine (Lysine) 500 Mg Tablet, 500 MG PO DAILY, #30 TAB Prov:ROLANDO PHELAN PA-C 12/10/16 Ascorbic Acid* (Vitamin C*) 500 Mg Capsule.sa, 500 MG PO DAILY, #30 CAP Prov:ROLANDO PHELAN PA-C 12/10/16 Benzocaine (Orabase) 11.9 Gm Paste..g., 1 APPLIC MM BID, #1 EA Prov:ROLANDO PHELAN PA-C 12/10/16 Amoxicillin/Potassium Clav (Amox-Clav 875-125 mg Tablet) 875-125 mg Tab, 1 TAB PO BID for 7 Days, #14 TAB Prov:ALVARO STERLING PA-C 11/18/16 Ibuprofen* (Motrin*) 600 Mg Tab, 600 MG PO Q6, #30 TAB Prov:ALVARO STERLING PA-C 11/18/16 Hydrocodone/Acetaminophen ([place] 5-325 Tablet) 1 Each Tablet, 1 TAB PO Q6H Y for PAIN, #10 TAB Prov:ALVARO STERLING PA-C 11/18/16 Ibuprofen* (Motrin*) 600 Mg Tab, 600 MG PO Q6H Y for PAIN AND OR ELEVATED TEMP, #30 TAB Prov:FAISAL SCHREIBER 07/27/16 Hydrocodone/Acetaminophen ([place] 5-325 Tablet) 1 Each Tablet, 1 EACH PO Q4 for PAIN, #10 TAB Prov:FAISAL SCHREIBER 07/27/16 Famotidine* (Famotidine*) 20 Mg Tablet, 20 MG PO DAILY, #30 TAB Prov:FAISAL SCHREIBER 07/27/16 Ondansetron Hcl* (Zofran*) 4 Mg Tablet, 4 MG PO Q6H for NAUSEA AND/OR VOMITING, #30 TAB Prov:FAISAL SCHREIBER 07/27/16 Ibuprofen* (Motrin*) 600 Mg Tab, 600 MG PO Q6, #30 TAB Prov:ROLANDO PHELAN PA-C 05/23/16 Pseudoephedrine Hcl* (Pseudoephedrine Hcl*) 30 Mg Tablet, 30 MG PO Q6 Y for CONGESTION, #30 TAB Prov:AFSHIN ARREAGA PA-C 12/23/15 Fluticasone Propionate (Flonase Allergy Relief) 9.9 Ml [place].susp, 1 SPRAY NASAL DAILY, #1 BOTTLE TO EACH NOSTRIL Prov:AFSHIN ARREAGA PA-C 12/23/15 Hydrocodone Bit-Acetaminophen* ([place]*) 5-325 Mg Tab, 1 TAB PO Q4H Y for PAIN for 5 Days, TAB Prov:ADDY RODRIGUEZ 08/16/15 Famotidine* (Pepcid*) 20 Mg Tablet, 20 MG PO BID for 15 Days, TAB Prov:ADDY RODRIGUEZ 08/16/15 Promethazine w/Codeine* (Phenergan w/Codeine* Syrup) 5 Ml Syrup, 5 ML PO Q4H Y for COUGH, #4 OZ Prov:ROLANDO PHELAN PA-C 06/27/15 Azithromycin* (Zithromax*) 250 Mg Tablet, 250 MG PO .ZPACK DIRECTED, #6 TAB TAKE 500 MG (2 TABS) THE FIRST DAY THEN 250 MG (1 TAB) DAYS 2-5 Prov:ROLANDO PHELAN PA-C 06/27/15 Reported Medications [stomach medications] No Conflict Check 01/11/15 Metronidazole* (Metronidazole*) 375 Mg Capsule, 375 MG PO BID, CAP 01/11/15 Allergies Allergies: Coded Allergies: No Known Allergy (Unverified , 12/10/16) PMhx/Soc History of Surgery: No Anesthesia Reaction: No Hx Neurological Disorder: No Hx Respiratory Disorders: No Hx Cardiac Disorders: No Hx Psychiatric Problems: No Hx Miscellaneous Medical Probl: No Hx Alcohol Use: No Hx Substance Use: No Hx Tobacco Use: No Physical Exam Vitals Vital Signs Date Time Temp Pulse Resp B/P Pulse Ox O2 Delivery O2 Flow Rate FiO2 01/25/17 11:46 98.2 70 20 120/64 100 Physical Exam Const: [] Head: Atraumatic Eyes: Normal Conjunctiva ENT: Normal External Ears, Nose and Mouth. Neck: Full range of motion..~ No meningismus. Resp: Clear to auscultation bilaterally Cardio: Regular rate and rhythm, no murmurs Abd: Soft, non tender, non distended. Normal bowel sounds Skin: No petechiae or rashes Back: No midline or flank tenderness Ext: No cyanosis, or edema Neur: Awake and alert Psych: Normal Mood and Affect Result Diagram: 01/25/17 1322 01/25/17 1322 Results 24 hrs Laboratory Tests Test 01/25/17 13:22 White Blood Count 7.310^3/ul Red Blood Count 4.8810^6/ul Hemoglobin 10.8g/dl Hematocrit 34.7% Mean Corpuscular Volume 71.1fl Mean Corpuscular Hemoglobin 22.1pg Mean Corpuscular Hemoglobin Concent 31.1g/dl Red Cell Distribution Width 14.4% Platelet Count 80634^3/UL Mean Platelet Volume 10.8fl Neutrophils % 48.5% Lymphocytes % 44.5% Monocytes % 4.5% Eosinophils % 1.8% Basophils % 0.3% Nucleated Red Blood Cells % 0.0/100WBC Neutrophils # (Manual) 3.610^3/ul Lymphocytes # 3.310^3/ul Monocytes # 0.310^3/ul Eosinophils # 0.110^3/ul Basophils # 0.010^3/ul Nucleated Red Blood Cells # 0.010^3/ul Urine Color YELLOW Urine Clarity SLIGHTLY CLOUDY Urine pH 5.0 Urine Specific [place] 1.026 Urine Ketones NEGATIVEmg/dL Urine Nitrite NEGATIVEmg/dL Urine Bilirubin NEGATIVEmg/dL Urine Urobilinogen NEGATIVEmg/dL Urine Leukocyte Esterase NEGATIVELeu/ul Urine Microscopic RBC 3/HPF Urine Microscopic WBC 3/HPF Urine Squamous Epithelial Cells MODERATE/HPF Urine Calcium Oxalate Crystals MANY/HPF Urine Mucus FEW/HPF Urine Hemoglobin NEGATIVEmg/dL Urine Glucose 3+mg/dL Urine Total Protein NEGATIVEmg/dl Sodium Level 141mmol/L Potassium Level 3.4mmol/L Chloride Level 105mmol/L Carbon Dioxide Level 24mmol/L Anion Gap 15 Blood Urea Nitrogen 15mg/dl Creatinine 0.65mg/dl Glucose Level 136mg/dl Calcium Level 9.5mg/dl Total Bilirubin 0.3mg/dl Direct Bilirubin 0.00mg/dl Indirect Bilirubin 0.3mg/dl Aspartate Amino Transf (AST/SGOT) 38IU/L Alanine Aminotransferase (ALT/SGPT) 48IU/L Alkaline Phosphatase 98IU/L Troponin I < 0.012ng/ml Total Protein 8.2g/dl Albumin 4.5g/dl Globulin 3.70g/dl Albumin/Globulin Ratio 1.21 Procedures/MDM Well-appearing 41-year-old female from [facility] presenting with a chief complaint of epigastric pain as described in history and physical examination.. Cardiac workup was obtained including troponin, CBC, CMP, lipase, EKG, chest x- ray, CBC was remarkable for hypokalemia of 4.2. Other test unremarkable. Recommend that the patient take calcium supplements. Has been prescribed. I have little suspicion for pancreatitis, cholangitis, ischemia, mechanical obstruction, pneumonia, ACS, or other acute pathologies at this time. Most likely diagnosis is chronic gastritis poorly controlled with pantoprazole. Patient will be discharged with discharge instructions and return precautions. I have spoken to the patient about the management they have verbally acknowledged that they agree and understand. I recommended to follow-up with GI in the next 1-3 days. Return to the emergency department if symptoms worsen or change. Departure Diagnosis: Primary Impression: Gastritis Qualified Code: K29.50 - Chronic gastritis, presence of bleeding unspecified, unspecified gastritis type Condition: Stable Patient Instructions: Gastritis (Adult) Additional Instructions: Follow up with your PCP within the next 1-3 days for a more thorough evaluation and a possible referral to a specialist. Return the the emergency department immediately if symptoms worsen or change. If you have any questions regarding medications, ask your pharmacist or us before you leave. If any adverse reactions occur while taking your medications, discontinue the treatment and return to the emergency department immediately. Take your medications as directed, and complete the entire course of treatment. CRISTINA PLUNKETT PA-C Jan 25, 2017 15:08
[2017-01-25] MEDS ORDERED: POTA10TA37 PO (15:09)
[2017-01-25] MEDS ORDERED: BELLADONNA/PHENOBARBITAL TAB PO STA (15:21)
[2017-01-25] MEDS ORDERED: LIDOCAINE/MYLANTA 40 ML BTL PO STA (15:21)
[2017-01-25 15:30] VITALS: BP 139/77; PULSE 86; RESP 18
== END 2017-01-25 15:30 | disposition home or self-care (01) ==
LOC: FTE 11:38
DX: K29.50 Unspecified chronic gastritis without bleeding (principal); R07.9 Chest pain, unspecified
CPT/HCPCS: 71010; 80053; 81001; 84484; 85025; 93005; Z7502; Z7610; 81003

== ENCOUNTER 2017-03-08 14:23 | Emergency (ER) | payer OTHER ==
[~2017-03-08] VITALS: Ht 152.4 cm; Wt 65.0 kg
[~2017-03-08 14:23] MED LIST changes: +POTA10TA37 PO
[2017-03-08 14:26] VITALS: Ht 152.4 cm; Wt 65.0 kg
[2017-03-08] MEDS ORDERED: LIDOCAINE/MYLANTA 40 ML BTL PO STA (15:17)
[2017-03-08] MEDS ORDERED: KETOROLAC 30 MG INJ IV STA (15:17)
[2017-03-08] MEDS ORDERED: ONDANSETRON 4 MG INJ IV STA ×2 (15:17→17:13)
[2017-03-08] MEDS ORDERED: FAMOTIDINE 20 MG TAB PO STA (15:17)
[2017-03-08] MEDS ORDERED: SOD CHLORIDE 0.9% 1,000 ML IV STA (15:17)
--- NOTE | 2017-03-08 15:52 | ERD ---
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 Patient has a history of this abdominal pain 4 years however states that the pain gets worse at night. Patient also complains of nausea with nonbilious vomiting. Had a vomiting episode yesterday. Patient has been [facility] here multiple times for similar symptoms as well as [facility]. Patient is diabetic but does not take any medication. Patient also has a history of gastritis. Patient is currently on Zofran, pantoprazole. Neither diarrhea had a bowel movement this afternoon. Denies fever. Also complains of chills. Denies chest pain or cough or shortness of breath. ROS All systems reviewed and are negative except as per history of present illness. Medications Home Meds Active Scripts Famotidine* (Pepcid*) 20 Mg Tablet, 20 MG PO BID for 7 Days, TAB Prov:IRVIN GANN PA-C 03/08/17 Ondansetron (Ondansetron Odt) 4 Mg Tab.rapdis, 4 MG PO Q6H Y for NAUSEA AND/OR VOMITING, #10 TAB Prov:IRVIN GANN PA-C 03/08/17 Potassium Chloride* (K-Dur*) 10 Meq Tab.prt.sr, 10 MEQ PO DAILY, #20 TAB Prov:CRISTINA PLUNKETT PA-C 01/25/17 Cyanocobalamin* (Vitamin B-12*) 100 Mcg Tablet, 100 MCG PO DAILY, #30 TAB Prov:ROLANDO PHELAN PA-C 12/10/16 Lysine (Lysine) 500 Mg Tablet, 500 MG PO DAILY, #30 TAB Prov:ROLANDO PHELAN PA-C 12/10/16 Ascorbic Acid* (Vitamin C*) 500 Mg Capsule.sa, 500 MG PO DAILY, #30 CAP Prov:ROLANDO PHELAN PA-C 12/10/16 Benzocaine (Orabase) 11.9 Gm Paste..g., 1 APPLIC MM BID, #1 EA Prov:ROLANDO PHELAN PA-C 12/10/16 Amoxicillin/Potassium Clav (Amox-Clav 875-125 mg Tablet) 875-125 mg Tab, 1 TAB PO BID for 7 Days, #14 TAB Prov:ALVARO STERLING PA-C 11/18/16 Ibuprofen* (Motrin*) 600 Mg Tab, 600 MG PO Q6, #30 TAB Prov:ALVARO STERLING PA-C 11/18/16 Hydrocodone/Acetaminophen ([place] 5-325 Tablet) 1 Each Tablet, 1 TAB PO Q6H Y for PAIN, #10 TAB Prov:ALVARO STERLING PA-C 11/18/16 Ibuprofen* (Motrin*) 600 Mg Tab, 600 MG PO Q6H Y for PAIN AND OR ELEVATED TEMP, #30 TAB Prov:FAISAL SCHREIBER 07/27/16 Hydrocodone/Acetaminophen ([place] 5-325 Tablet) 1 Each Tablet, 1 EACH PO Q4 for PAIN, #10 TAB Prov:FAISAL SCHREIBER 07/27/16 Famotidine* (Famotidine*) 20 Mg Tablet, 20 MG PO DAILY, #30 TAB Prov:FAISAL SCHREIBER 07/27/16 Ondansetron Hcl* (Zofran*) 4 Mg Tablet, 4 MG PO Q6H for NAUSEA AND/OR VOMITING, #30 TAB Prov:FAISAL SCHREIBER 07/27/16 Ibuprofen* (Motrin*) 600 Mg Tab, 600 MG PO Q6, #30 TAB Prov:ROLANDO PHELAN PA-C 05/23/16 Pseudoephedrine Hcl* (Pseudoephedrine Hcl*) 30 Mg Tablet, 30 MG PO Q6 Y for CONGESTION, #30 TAB Prov:AFSHIN ARREAGA PA-C 12/23/15 Fluticasone Propionate (Flonase Allergy Relief) 9.9 Ml [place].susp, 1 SPRAY NASAL DAILY, #1 BOTTLE TO EACH NOSTRIL Prov:AFSHIN ARREAGA PA-C 12/23/15 Hydrocodone Bit-Acetaminophen* ([place]*) 5-325 Mg Tab, 1 TAB PO Q4H Y for PAIN for 5 Days, TAB Prov:ADDY RODRIGUEZ 08/16/15 Famotidine* (Pepcid*) 20 Mg Tablet, 20 MG PO BID for 15 Days, TAB Prov:ADDY RODRIGUEZ 08/16/15 Promethazine w/Codeine* (Phenergan w/Codeine* Syrup) 5 Ml Syrup, 5 ML PO Q4H Y for COUGH, #4 OZ Prov:ROLANDO PHELAN PA-C 06/27/15 Azithromycin* (Zithromax*) 250 Mg Tablet, 250 MG PO .ZPACK DIRECTED, #6 TAB TAKE 500 MG (2 TABS) THE FIRST DAY THEN 250 MG (1 TAB) DAYS 2-5 Prov:ROLANDO PHELAN PA-C 06/27/15 Reported Medications [stomach medications] No Conflict Check 01/11/15 Metronidazole* (Metronidazole*) 375 Mg Capsule, 375 MG PO BID, CAP 01/11/15 Allergies Allergies: Coded Allergies: No Known Allergy (Unverified , 12/10/16) PMhx/Soc Medical and Surgical Hx: pt denies Surgical Hx History of Surgery: No Anesthesia Reaction: No Hx Neurological Disorder: No Hx Respiratory Disorders: No Hx Cardiac Disorders: No Hx Psychiatric Problems: No Hx Miscellaneous Medical Probl: Yes (dm) Hx Alcohol Use: No Hx Substance Use: No Hx Tobacco Use: No Physical Exam Vitals Vital Signs Date Time Temp Pulse Resp B/P Pulse Ox O2 Delivery O2 Flow Rate FiO2 03/08/17 14:26 98.4 98 20 156/84 100 Physical Exam GENERAL: Well-developed, well-nourished female. Appears in mild distress HEAD: Normocephalic, atraumatic. EYES: Pupils are equally reactive bilaterally. EOMs grossly intact. No conjunctival erythema. ENT: Moist mucous membranes. No uvula deviation. No kissing tonsils. No exudates. NECK: Supple. No lymphadenopathy or thyromegaly. No meningismus. negative kernig. negative brudinski. LUNG: Clear to auscultation bilaterally. No rhonchi, wheezing, rales or coarse breath sounds. HEART: Regular rate and rhythm. No murmurs, rubs or gallops. ABDOMEN: No scars, ecchymosis or rashes noted. Soft,and nondistended. Positive bowel sounds in all four quadrants. No rebound tenderness, no guarding. (-) McBurneys point tenderness. No CVA tenderness. generalized tenderness more in llq and ruq. BACK: No midline tenderness. Extremities: Equal pulses bilaterally. No peripheral clubbing, cyanosis or edema. No unilateral leg swelling. NEUROLOGIC: Alert and oriented. Moving all four extremities. 5/5 strength in all extremities. Normal speech. Steady gait. SKIN: Normal color. Warm and dry. No rashes or lesions. Capillary refill < 2 seconds Result Diagram: 03/08/17 1550 03/08/17 1550 Results 24 hrs Laboratory Tests Test 03/08/17 15:50 White Blood Count 6.610^3/ul Red Blood Count 5.6310^6/ul Hemoglobin 12.4g/dl Hematocrit 39.7% Mean Corpuscular Volume 70.5fl Mean Corpuscular Hemoglobin 22.0pg Mean Corpuscular Hemoglobin Concent 31.2g/dl Red Cell Distribution Width 13.2% Platelet Count 92500^3/UL Mean Platelet Volume 9.9fl Neutrophils % 43.8% Lymphocytes % 46.5% Monocytes % 5.3% Eosinophils % 3.6% Basophils % 0.5% Nucleated Red Blood Cells % 0.0/100WBC Neutrophils # 2.910^3/ul Lymphocytes # 3.110^3/ul Monocytes # 0.410^3/ul Eosinophils # 0.210^3/ul Basophils # 0.010^3/ul Nucleated Red Blood Cells # 0.010^3/ul Urine Color COLORLESS Urine Clarity CLEAR Urine pH 8.0 Urine Specific [place] 1.002 Urine Ketones NEGATIVEmg/dL Urine Nitrite NEGATIVEmg/dL Urine Bilirubin NEGATIVEmg/dL Urine Urobilinogen NEGATIVEmg/dL Urine Leukocyte Esterase NEGATIVELeu/ul Urine Hemoglobin NEGATIVEmg/dL Urine Glucose NEGATIVEmg/dL Urine Total Protein NEGATIVEmg/dl Sodium Level 143mmol/L Potassium Level 3.6mmol/L Chloride Level 104mmol/L Carbon Dioxide Level 25mmol/L Anion Gap 18 Blood Urea Nitrogen 9mg/dl Creatinine 0.71mg/dl Glucose Level 140mg/dl Calcium Level 10.1mg/dl Total Bilirubin 0.1mg/dl Direct Bilirubin 0.00mg/dl Indirect Bilirubin 0.1mg/dl Aspartate Amino Transf (AST/SGOT) 47IU/L Alanine Aminotransferase (ALT/SGPT) 52IU/L Alkaline Phosphatase 117IU/L Troponin I < 0.012ng/ml Total Protein 8.5g/dl Albumin 4.8g/dl Globulin 3.70g/dl Albumin/Globulin Ratio 1.29 Lipase 140U/L Current Medications Medications (Trade) Dose Ordered Sig/Konstantin Route PRN Reason Start Time Stop Time Status Last Admin Dose Admin Sodium Chloride (NS) 1,000 ml @ 1,000 mls/hr Q1H STAT IV 03/08/17 15:17 03/08/17 16:16 DC 03/08/17 15:43 Ondansetron HCl (Zofran Inj) 4 mg ONCE STAT IV 03/08/17 15:17 03/08/17 15:21 DC 03/08/17 15:45 Famotidine (Pepcid) 20 mg ONCE STAT PO 03/08/17 15:17 03/08/17 15:21 DC 03/08/17 15:43 Miscellaneous Medication (Gi Cocktail (2)) 40 ml ONCE STAT PO 03/08/17 15:17 03/08/17 15:21 DC 03/08/17 15:45 Ketorolac Tromethamine (Toradol) 30 mg ONCE STAT IV 03/08/17 15:17 03/08/17 15:21 DC 03/08/17 15:45 Morphine Sulfate (morphine) 4 mg ONCE STAT IV 03/08/17 17:13 03/08/17 17:14 DC 03/08/17 17:19 Ondansetron HCl (Zofran Inj) 4 mg ONCE STAT IV 03/08/17 17:13 03/08/17 17:14 DC 03/08/17 17:19 Procedures/MDM ER COURSE: I kept the patient and/or family informed of laboratory and diagnostic imaging results throughout the emergency room course. EKG, MONITORS, & DIAGNOSTIC IMAGING: EKG performed, read by Dr Wheeler 74 bpm, normal sinus rhythm, normal axis, no acute ST segment changes, no T wave inversion [place] [id number] Radiology Main Line: [phone] DIAGNOSTIC IMAGING REPORT Patient: MOST FANNIE : 1975 Age: 42 Sex: F MR #: [id number] DOS: 03/08/17 1552 Ordering MD: IRVIN GANN PA-C Location: [facility] Room/Bed: PROCEDURE: Right Upper Quadrant Ultrasound. CLINICAL INDICATION: Epigastric and right upper quadrant abdominal pain TECHNIQUE: Multiple real-time images were acquired of the patient's right upper quadrant abdomen and retroperitoneum utilizing a high resolution transducer. COMPARISON: Abdominal ultrasound from 07/27/2016 FINDINGS: The liver measures 12.9 cm, and demonstrates moderately increased echogenicity, unchanged. The main portal vein is patent with proper directional flow. There is no intrahepatic biliary ductal dilatation. The extrahepatic common bile duct measures 3 mm. The gallbladder is not visualized. The visualized pancreas is unremarkable. The right kidney measures 9.9 cm and demonstrates normal echotexture. There is no right renal calculus or hydronephrosis. The visualized abdominal aorta and IVC are grossly unremarkable. IMPRESSION: Stable moderate fatty infiltration of the liver. The gallbladder is not visualized although it was present on the prior ultrasound study from 07/27/2016. Correlation with surgical history for interval cholecystectomy is recommended. Alternatively, the gallbladder may be contracted. Normal CBD. RPTAT: EE Physician Ang Date Time Electronically viewed and signed by Royce Cerda Physician on 03/08/2017 16:25 RA/ CC: IRVIN GANN PA-C [place] [id number] Radiology Main Line: [phone] DIAGNOSTIC IMAGING REPORT Patient: MOST FANNIE : 1975 Age: 42 Sex: F MR #: [id number] DOS: 03/08/17 [employer] Ordering MD: IRVIN GANN PA-C Location: [facility] Room/Bed: PROCEDURE: CT abdomen and pelvis without contrast. CLINICAL INDICATION: Right upper quadrant abdominal pain. TECHNIQUE: CT of the abdomen and pelvis without contrast was performed on a multidetector high-resolution CT scanner. Coronal and sagittal reformatted images were obtained from the axial source images. Images were reviewed on a high-resolution PACS workstation. The total exam CTDI equals 6.32 mGy and the total exam DLP equals 326.63 mGy-cm. Evaluation is partially limited due to motion artifact. One or more of the following dose reduction techniques were used: - Automated exposure control. - Adjustment of the mA and/or kV according to patient size. - Use of iterative reconstruction technique. COMPARISON: Abdominal ultrasound dated 03/08/[address] dated 12/23/2015. FINDINGS: Visualized lower thorax: The visualized lung bases are clear. The visualized heart is unremarkable. Hepatobiliary system and spleen: There is diffuse fatty infiltration of the liver, which is enlarged measuring 18.7 cm in length. There is no intra or extrahepatic biliary ductal dilatation. The gallbladder is not identified, and may be surgically absent. The spleen is grossly unremarkable. The pancreas is grossly unremarkable. Adrenal glands and genitourinary system: The adrenal glands are grossly unremarkable. There is mild right hydronephrosis and hydroureter with no radiopaque obstructing stone or definitive source for the hydronephrosis identified. There is no nephrolithiasis. The urinary bladder is grossly unremarkable. The uterus and adnexa are grossly unremarkable. Gastrointestinal system: The stomach and small bowel are unremarkable. There is no bowel wall thickening or evidence of obstruction. The appendix is in the right lower quadrant and is unremarkable. Peritoneum, vascular, and lymphatics: There is no free intraperitoneal air or free fluid. There is no mesenteric or retroperitoneal adenopathy. The aorta is nonaneurysmal. Musculoskeletal system and soft tissues: There are no concerning osseous lesions. The soft tissues are unremarkable. IMPRESSION: 1. Hepatomegaly and hepatic steatosis. 2. Mild right-sided hydroureteronephrosis with no radiopaque obstructing stone or definitive source of obstruction identified. Correlation with urinalysis is recommended. Post contrast CT urogram can be performed for further evaluation. RPTAT: HLBP .Darshan Damian MD, MD Date Time Electronically viewed and signed by .Darshan Damian MD, MD on 03/08/2017 16:51 .P/ CC: IRVIN GANN PAMari MEDICATIONS: Patient given GI cocktail, Zofran, Toradol, morphine. Tolerated well and improvement in symptoms. LAB INTERPRETATION: CBC showed no evidence of systemic infection or severe anemia. CMP showed no evidence of electrolyte abnormalities, severe acidosis, alkalosis, renal failure , or liver disease. Lipase showed no evidence of acute pancreatitis. UA showed no evidence of leukocytes, nitrites or hematuria. MEDICAL DECISION MAKING: This is a 42-year-old female who presents with chronic abdominal pain 4 years. Vital signs were reviewed. Patient is afebrile. Patient is not hypoxic. Patient is not toxic. I consulted with my supervising physician Dr. Wheeler who reviewed all imaging and laboratory studies and agrees with my medical decision making and discharge plans. Patient had improvement of symptoms after administration of medications. 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 Low suspicion for ACS, AAA, perforated ulcer, bowel obstruction, cholecystitis, choledocholithiasis, cholangitis, pancreatitis, hepatic abscess, appendicitis, diverticulitis, gastroenteritis, hepatitis, peptic ulcer disease. Low suspicion for ACS, PE, AAA, dissection, DVT DISCHARGE: At this time, patient is stable for discharge and outpatient management with no new complaints during the ER course. Patient was sent home with Juma Romo, janusz of GI specialist and instructions to follow up with her primary care provider and specialist. Patient will be discharged home with instructions to recheck for new or worsening symptoms such as fever, nausea, weakness, LOC and to follow up with primary care in the next 1-2 days. Patient was advised to return to the ER for any new or worsening symptoms. Plan was discussed and patient and/or family understands and agrees. Home instructions were given. Departure Diagnosis: Primary Impression: Abdominal pain Abdominal location: upper abdomen, unspecified Qualified Code: R10.10 - Pain of upper abdomen Condition: Stable IRVIN GANN PA-C Mar 08, 2017 15:52
[2017-03-08 16:05] LABS: BASOPHILS % 0.5 % (0.0-2.0); EOSINOPHILS # 0.2 10^3/ul (0.0-0.5); EOSINOPHILS % 3.6 % (0.0-7.0); HEMATOCRIT 39.7 % (37.0-47.0); HEMOGLOBIN 12.4 g/dl (12.0-16.0); LYMPHOCYTES # 3.1 10^3/ul (0.8-2.9); LYMPHOCYTES % 46.5 % (15.0-51.0); MEAN CORPUSCULAR HGB CONC 31.2 g/dl (32.0-37.0); MEAN CORPUSCULAR VOLUME 70.5 fl (82.0-101.0); MEAN PLATELET VOLUME 9.9 fl (7.4-10.4); MONOCYTE # 0.4 10^3/ul (0.3-0.9); MONOCYTES % 5.3 % (0.0-11.0); NEUTROPHIL # 2.9 10^3/ul (1.6-7.5); NEUTROPHILS % 43.8 % (39.0-77.0); PLATELET COUNT 232 10^3/UL (140-415); RED BLOOD COUNT 5.63 10^6/ul (4.20-5.40); RED CELL DISTRIBUTION WIDTH 13.2 % (11.5-14.5); WHITE BLOOD COUNT 6.6 10^3/ul (4.8-10.8)
[2017-03-08 16:19] LABS: ADD UMIC NO; UR ASCORBIC ACID NEGATIVE (NEGATIVE); UR BILIRUBIN (Dip) NEGATIVE (NEGATIVE); UR BLOOD (Dip) NEGATIVE (NEGATIVE); UR CLARITY CLEAR (CLEAR); UR COLOR COLORLESS (YELLOW); UR GLUCOSE (Dip) NEGATIVE (NEGATIVE); UR KETONES (Dip) NEGATIVE (NEGATIVE); UR LEUKOCYTE ESTERASE (Dip) NEGATIVE Leu/ul (NEGATIVE); UR NITRITE (Dip) NEGATIVE (NEGATIVE); UR SPECIFIC GRAVITY (Dip) 1.002 (1.003-1.030); UR TOTAL PROTEIN (Dip) NEGATIVE (NEGATIVE); UR UROBILINOGEN (Dip) NEGATIVE (NEGATIVE)
[2017-03-08 16:24] LABS: ALANINE AMINOTRANSFERASE 52 IU/L (13-69); ALBUMIN 4.8 g/dl (3.3-4.9); ALBUMIN/GLOBULIN RATIO 1.29; ALKALINE PHOSPHATASE 117 IU/L (42-121); ANION GAP 18 (8-16); ASPARTATE AMINO TRANSFERASE 47 IU/L (15-46); BILIRUBIN,INDIRECT 0.1 mg/dl (0-1.1); BILIRUBIN,TOTAL 0.1 mg/dl (0.2-1.3); BLOOD UREA NITROGEN 9 mg/dl (7-20); CALCIUM 10.1 mg/dl (8.4-10.2); CARBON DIOXIDE 25 mmol/L (21-31); CHLORIDE 104 mmol/L (97-110); CREATININE 0.71 mg/dl (0.44-1.00); GLUCOSE 140 mg/dl (70-220); POTASSIUM 3.6 mmol/L (3.5-5.1); SODIUM 143 mmol/L (135-144); TOTAL PROTEIN 8.5 g/dl (6.1-8.1)
--- NOTE | 2017-03-08 16:25 | RADRPT ---
PROCEDURE: Right Upper Quadrant Ultrasound. CLINICAL INDICATION: Epigastric and right upper quadrant abdominal pain TECHNIQUE: Multiple real-time images were acquired of the patient's right upper quadrant abdomen a nd retroperitoneum utilizing a high resolution transducer. COMPARISON: Abdominal ultrasound from 07/27/2016 FINDINGS: The liver measures 12.9 cm, and demonstrates moderately increased echogenicity, unchanged. The main portal vein is patent with proper directional flow. There is no intrahepatic biliary ductal dilatati on. The extrahepatic common bile duct measures 3 mm. The gallbladder is not visualized. The visualized pancreas is unremarkable. The right kidney measures 9.9 cm and demonstrates normal echotexture. There is no right renal calcul us or hydronephrosis. The visualized abdominal aorta and IVC are grossly unremarkable. IMPRESSION: Stable moderate fatty infiltration of the liver. The gallbladder is not visualized although it was present on the prior ultrasound study from 017. Correlation with surgical history for interval cholecystectomy is recommended. Alternatively, t he gallbladder may be contracted. Normal CBD. RPTAT: EE Physician Ang Date Time Electronically viewed and signed by Physician Ang on 03/08/2017 16:25 /
[2017-03-08 16:40] LABS: TROPONIN-I < 0.012 ng/ml (0.00-0.12)
--- NOTE | 2017-03-08 16:52 | RADRPT ---
PROCEDURE: CT abdomen and pelvis without contrast. CLINICAL INDICATION: Right upper quadrant abdominal pain. TECHNIQUE: CT of the abdomen and pelvis without contrast was performed on a multidetector high-reso lution CT scanner. Coronal and sagittal reformatted images were obtained from the axial source image s. Images were reviewed on a high-resolution PACS workstation. The total exam CTDI equals 6.32 mGy a nd the total exam DLP equals 326.63 mGy-cm. Evaluation is partially limited due to motion artifact. One or more of the following dose reduction techniques were used: - Automated exposure control. - Adjustment of the mA and/or kV according to patient size. - Use of iterative reconstruction technique. COMPARISON: Abdominal ultrasound dated 03/08/[address] dated 12/23/2015. FINDINGS: Visualized lower thorax: The visualized lung bases are clear. The visualized heart is unremarkable. Hepatobiliary system and spleen: There is diffuse fatty infiltration of the liver, which is enlarge d measuring 18.7 cm in length. There is no intra or extrahepatic biliary ductal dilatation. The gall bladder is not identified, and may be surgically absent. The spleen is grossly unremarkable. The cody creas is grossly unremarkable. Adrenal glands and genitourinary system: The adrenal glands are grossly unremarkable. There is mild right hydronephrosis and hydroureter with no radiopaque obstructing stone or definitive source for the hydronephrosis identified. There is no nephrolithiasis. The urinary bladder is grossly unremarka ble. The uterus and adnexa are grossly unremarkable. Gastrointestinal system: The stomach and small bowel are unremarkable. There is no bowel wall thick ening or evidence of obstruction. The appendix is in the right lower quadrant and is unremarkable. Peritoneum, vascular, and lymphatics: There is no free intraperitoneal air or free fluid. There is no mesenteric or retroperitoneal adenopathy. The aorta is nonaneurysmal. Musculoskeletal system and soft tissues: There are no concerning osseous lesions. The soft tissues are unremarkable. IMPRESSION: 1. Hepatomegaly and hepatic steatosis. 2. Mild right-sided hydroureteronephrosis with no radiopaque obstructing stone or definitive source of obstruction identified. Correlation with urinalysis is recommended. Post contrast CT urogram can be performed for further evaluation. RPTAT: HLBP .Darshan Damian MD, MD Date Time Electronically viewed and signed by .Darshan Damian MD, MD on 03/08/2017 16:51 .P/
[2017-03-08] MEDS ORDERED: morphine 4 MG/ML VIAL IV STA (17:13)
[2017-03-08] MEDS ORDERED: ONDA4TAB14 PO (17:30)
[2017-03-08] MEDS ORDERED: FAMO-96 PO (17:48)
[2017-03-08 18:28] VITALS: BP 144/78; PULSE 77; RESP 20; TEMP 99.1
== END 2017-03-08 18:41 | disposition home or self-care (01) ==
LOC: FTE 14:23
DX: R10.10 Upper abdominal pain, unspecified (principal); E11.9 Type 2 diabetes mellitus without complications
CPT/HCPCS: 36415; 74176; 76705; 80053; 81003; 83690; 84484; 85025; 93005; 96374; 96375; 96376; J1885; J2270; J2405; J7030; Z7502; Z7610

== ENCOUNTER 2018-02-15 10:45 | Emergency (ER) | END 2018-02-15 12:01 | disposition home or self-care (01) ==

== ENCOUNTER 2018-02-17 18:35 | Emergency (ER) | END 2018-02-17 23:51 | disposition home or self-care (01) ==